=== PATIENT | male | born 1940 | race Caucasian/White ===

== ENCOUNTER 2021-09-08 02:12 | Day surgery (SDC) | payer MEDICARE, SELFPAY ==
[2021-09-02 12:50] VITALS: BMI 26.6
--- NOTE | 2021-09-02 13:06 | PC.NURSE ---
Report to the Outpatient Waiting Room, entrance under the green pavilion located off [facility], at time ___06____ on date __09/08/21 . OR Time: . - You and your visitor will be asked a series of questions to screen for COVID 19 for your protection. - A mask is required within the hospital. Preoperative COVID Testing Requirements: NONE No COVID Test needed if: (proof is required; if not received patient will have Rapid Test prior to entry) - Patient has received COVID Vaccine at least 14 days prior to procedure date or - Patient has positive COVID test result within last 90 days of surgery date. COVID Test needed if above criteria is not met If not COVID vaccinated a COVID test must be conducted within 72 hours of surgery and patient is asked to isolate self from time of testing until procedure. You will go to the [facility] for your COVID testing. The [facility] is located at the corner of [address] [facility]. You will only be called if COVID results are positive and your surgeon may reschedule your elective surgery date. Patients may have clear liquids (water, carbonated beverages, clear teas, apple juice) until 3 hours prior to surgery with a maximum of 20 ounces. - No food from midnight until time of surgery - Infants may have breast milk until 4 hours before surgery, formula 6 hours prior to surgery. - Children will be allowed to drink immediately following surgery. If applicable, please bring a bottle or sippy cup to assist with drinking. Juice, water, soda, and popsicles are readily available. For infants on formula, please bring formula the day of surgery. Pacifiers are allowed. Take the following medications with a SIP of water the morning of surgery: __AMLODIPINE, CARVEDILOL__ Medications to discontinue per physician N/A Date to take last dose Please no make-up, nail qatari, hairspray, perfume, deodorant, or body powder the day of surgery. No jewelry (including any body piercings) or valuables the day of surgery, leave them at home. Please take a shower or bath the night before, or the morning of, surgery with an antibacterial soap. Wear comfortable, loose fitting clothing. Children are encouraged to wear pajamas. - Jewelry must be removed prior to entering the operating room. Rings and piercings that are not removed may be cut off. - The hospital will not accept responsibility for valuables. - Please leave all valuables, including medications, at home the day of surgery. If you are going home after surgery, a licensed semi truck driver must drive you home. - NO public transportation without another adult. - We recommend that an adult stay with you for 24 hours following discharge. - We also recommend that you do not drive, make important decision, drink alcoholic beverages, or take any drugs that were not prescribed by your health care provider for at least 24 hours after your discharge time. For Pediatric surgeries, we recommend two adults accompany the child home (only one inside the building at this time). One visitor will be allowed to accompany the patient into the hospital. Patients visitor will be instructed to remain with patient at all times or leave the building. We will allow the visitor to come back to the postoperative area when patient is ready. Follow any additional instructions given to you from your surgeon. Telephone instructions given to ___PT and asked if any additional questions and then verbalized understanding. Patient advised to call surgeon office or pre surgery nurse liaison [phone] if any additional questions.
--- NOTE | 2021-09-07 10:18 | P.PNAN_ITS ---
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 Patient Data Age: 80 Gender: M Height: 1.85 m Weight: 91.81 kg Allergies Allergy/AdvReac Type Severity Reaction Status Date / Time Penicillins AdvReac PASSED OUT Verified 09/02/21 12:50 - A CHILD Home Medications Medication Instructions Recorded Confirmed Type Artersia 5 mg HS 09/02/21 09/02/21 History Atixaban 1 tab-cap HS 09/02/21 09/02/21 History amlodipine 10 mg QAM 09/02/21 09/02/21 History aspirin 81 mg PO QAM 09/02/21 09/02/21 History atorvastatin 40 mg QAM 09/02/21 09/02/21 History carvedilol 6.25 mg HS 09/02/21 09/02/21 History glipizide 10 mg PO QAM 09/02/21 09/02/21 History insulin glargine-yfgn 24 unit SUBCUT BID 09/02/21 09/02/21 History lisinopril 40 mg QAM 09/02/21 09/02/21 History potassium chloride 20 meq PO QAM 09/02/21 09/02/21 History zolpidem 10 mg HS 09/02/21 09/02/21 History Patient hx anesthesia problems: none Family hx anesthesia problems: none Results Review: All pre-operative results and documents have been reviewed as part of the pre-operative evaluation. [facility] Past Medical History Medical History (Updated 09/07/21 @ 10:18 by Castro Saul DO) CAD (coronary artery disease) Diabetes type 2, controlled Hyperlipidemia Hypertension Pacemaker Surgical History Surgical History (Updated 09/07/21 @ 10:18 by Castro Saul DO) History of coronary artery stent placement Social History Social History Smoking status: Never smoker Second hand tobacco smoke exposure: No Alcohol intake: current Alcohol use details: STATES MAYBE 2 BEERS/MONTH Substance use: never Substance use type: does not use Living arrangements: alone Spiritual care concerns: No Anes - Eval Final PreProcedure Day of Procedure 09/07/21 10:18 Patient weight: overweight Heart: regular rate and rhythm Lungs: clear to auscultation and normal air movement Airway: Mallampati scale class II Neurological: alert and oriented Last oral intake: >/= 8 hours ASA classification: III Emergent: no Anesthetic plan: proceed Anesthesia type and monitoring: general GIVS and standard monitoring Results Review: All pre-operative results and documents have been reviewed as part of the pre-operative evaluation. Informed Consent: The patient's anesthetic plan and its attendant risks and benefits were discussed with the patient/family/POA. Questions were solicited and answers provided to the satisfaction of the patient/family/POA.
[2021-09-08 06:30] VITALS: BP 167/72; PULSE 60; RESP 16; TEMP 36.6; O2SAT 100
[2021-09-08] MEDS: ACETAMINOPHEN 500 MG TABLET 1000 MG PO (06:46)
[2021-09-08] MEDS: LACTATED RINGERS 1,000 ML 30 ML IV CONT (06:54)
[2021-09-08 06:59] LABS: Glucose Point of Care 210 mg/dl (65-105)
--- NOTE | 2021-09-08 07:21 | WPDHPUPDATE1 ---
History and Physical Update Update Date/Time: 09/08/21 07:21 History and Physical has been reviewed, including an updated exam of the patient. There are NO changes in the patient's condition. Risks, benefits, and alternatives have been discussed and questions answered. Patient agrees to proceed with procedure.
[2021-09-08] MEDS: ceFAZolin 2 GM/D5W 50 ML 2 GM/50 ML BAG IVPB (07:27)
--- NOTE | 2021-09-08 07:56 | SUR.OPER ---
Frozen section specimen sent with maria esther Diaz and received in pathology by Miladis
[2021-09-08] MEDS: BALANCED SALT SOLN OPHTH IRRIG 30 ML BTL LEFT EYE (08:01)
[2021-09-08] MEDS: BACITRACIN OINTMENT 15 GM TUBE 1 APPLIC TOPICAL (08:02)
[2021-09-08 08:43] VITALS: BP 118/63; PULSE 61; RESP 16; O2SAT 99
--- NOTE | 2021-09-08 08:54 | P.OP_ITS ---
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 Patient was taken to the operating room where he was placed supine on the operating table. A time-out was held and confirmed. He was given IV sedation and the face and neck were prepped and draped in usual fashion the site on the nose was carefully marked for excision and infiltrated locally with 1% lidocaine with epinephrine. The full-thickness specimen was taken into the subcutaneous tissue, marked with a suture for 12:00 o'clock and sent for frozen section. The pathologist reported that the tumor was basal cell carcinoma and the margins were free. A full-thickness graft was harvested from the left Prieb mastoid area. The site was marked for excision and infiltrated with 1% lidocaine with epinephrine. A full-thickness skin excision was carried out to the bottom of the dermis. The the donor site was closed with intradermal 3-0 Vicryl sutures and glue. The graft was applied to the defect on the ala and inset with interrupted 5 0 nylon suture. Discharged from the operating room stable condition. He is being discharged with a prescription for doxycycline 100 mg b.i.d. for 5 days and tramadol 50 mg 1 or 2 p.o. q.6 hours as needed for pain 8. Estimated Blood Loss 1 Drains No Packing No Pathology Yes Complications No immediate complications Condition Stable Disposition Same day
[2021-09-08 09:10] VITALS: BP 136/65; PULSE 60; RESP 16; O2SAT 96
[2021-09-08 09:19] LABS: Glucose Point of Care 190 mg/dl (65-105)
[2021-09-08 09:40] VITALS: BP 146/66; PULSE 60; RESP 16
== END 2021-09-08 10:00 | disposition home or self-care (01) ==
PROVIDERS: PCP Family Medicine; Visit Provider Plastic Surgery
PROC: (CPT 11641; principal; 2021-09-08 07:30)
DX: C44.311 Basal cell carcinoma of skin of nose (principal); I10 Essential (primary) hypertension; I25.10 Atherosclerotic heart disease of native coronary artery without angina pectoris; E78.5 Hyperlipidemia, unspecified; E11.9 Type 2 diabetes mellitus without complications; Z95.0 Presence of cardiac pacemaker; Z79.01 Long term (current) use of anticoagulants; Z79.4 Long term (current) use of insulin; Z79.82 Long term (current) use of aspirin; Z95.5 Presence of coronary angioplasty implant and graft
CPT/HCPCS: 11641; 15260; 82948; 88305; 88331; A9270; J0690; J2704; J3010; J7120